=== PATIENT | male | born 1970 | race Caucasian/White ===

== ENCOUNTER → 2019-12-14 15:57 | Outpatient (CLI) | payer OTHER, MEDICAID, SELFPAY ==
[2019-12-14 17:18] LABS: Alanine Aminotransferase 41 IU/L (<50); Albumin 4.3 g/dL (3.5-5.0); Albumin Globulin Ratio 1.7 (1.0-2.8); Alkaline Phosphatase 82 U/L (38-126); Aspartate Aminotransferase 24 IU/L (17-59); BUN Creatinine Ratio 16.5 (6-22); Bilirubin Total 0.6 mg/dL (0.2-1.3); Blood Urea Nitrogen 23 mg/dL (9-20); Calcium 9.8 mg/dL (8.4-10.2); Carbon Dioxide 31 mmol/L (22-32); Chloride 104 mmol/L (98-107); Creatinine Urine Random 178.7 mg/dL; Estimated Glomerular Filt Rate 54.1 mL/min (>60); Globulin 2.6 g/dL (1.7-4.1); Glucose 94 mg/dL (70-100); HEMOLYSIS < 15 (0-50); Potassium 4.4 mmol/L (3.4-5.1); Sodium 140 mmol/L (137-145); Total Protein 6.9 g/dL (6.3-8.2)
[2019-12-14 17:22] LABS: Microalbumi Creatinin Ratio Ur 5.5 ug/mg CR (<30)
== END ==
PROVIDERS: PCP Registered Nurse; Referring Provider Registered Nurse; Visit Provider Registered Nurse
DX: I10 Essential (primary) hypertension (principal)
CPT/HCPCS: 36415; 80053; 82043; 82570

== ENCOUNTER → 2019-12-23 08:44 | Outpatient (CLI) | payer OTHER, MEDICAID, SELFPAY ==
--- NOTE | 2019-12-23 08:47 | DI.US.S_ITS ---
PROCEDURE: US RENAL COMPLETE INDICATIONS: history of kidney stones TECHNIQUE: Real-time scanning was performed of the kidneys and bladder, with image documentation. COMPARISON: None. FINDINGS: Kidneys: Kidneys are normal in size. Right kidney measures 11.4 cm long; left kidney measures 11.2 cm long. Right renal cortical thickness is 2 point cm; left renal cortical thickness is 1.9 cm. Renal cortical echotexture is normal. No hydronephrosis. 9 mm nonobstructing midpole left renal calcification. Bladder: Pre-void bladder volume is 160 mL. Post-void residual is 46 mL. Pre-void images demonstrate no intraluminal masses or stones. On pre-void images, neither ureteral jets are noted with color Doppler interrogation. (Of note, ureteral jets may not be detectable in up to 25% of cases due to insufficient differences in specific gravity between ureteral and bladder urine). Miscellaneous: No free pelvic fluid. IMPRESSION: 1. 9 mm nonobstructing left renal calcification; otherwise normal appearance of the kidneys. Dictated by: Niall Amezcua [facility] Interpreted: Steven Corral MD on 12/23/2019 at 12:11 Approved by: Steven Corral M.D. on 12/23/2019 at 14:22
[2019-12-23 11:22] LABS: Alanine Aminotransferase 67 IU/L (<50); Albumin 4.2 g/dL (3.5-5.0); Albumin Globulin Ratio 1.7 (1.0-2.8); Alkaline Phosphatase 94 U/L (38-126); Aspartate Aminotransferase 36 IU/L (17-59); BUN Creatinine Ratio 18.1 (6-22); Bilirubin Total 0.6 mg/dL (0.2-1.3); Blood Urea Nitrogen 19 mg/dL (9-20); Calcium 9.3 mg/dL (8.4-10.2); Carbon Dioxide 32 mmol/L (22-32); Chloride 102 mmol/L (98-107); Estimated Glomerular Filt Rate > 60.0 mL/min (>60); Globulin 2.5 g/dL (1.7-4.1); Glucose 97 mg/dL (70-100); HEMOLYSIS < 15 (0-50); Potassium 4.2 mmol/L (3.4-5.1); Sodium 140 mmol/L (137-145); Total Protein 6.7 g/dL (6.3-8.2)
== END ==
PROVIDERS: PCP Registered Nurse; Referring Provider Registered Nurse; Visit Provider Registered Nurse
DX: N20.0 Calculus of kidney (principal); R89.9 Unspecified abnormal finding in specimens from other organs, systems and tissues; Z87.442 Personal history of urinary calculi
CPT/HCPCS: 36415; 76770; 80053